=== PATIENT | female | born 1945 | race Caucasian/White ===

== ENCOUNTER 2016-11-17 05:32 | Inpatient (IN) | payer OTHER ==
[~2016-11-17] VITALS: Ht 162.6 cm; Wt 78.5 kg
--- NOTE | ~2016-11-17 | O ---
[facility] [place] [address] OPERATIVE REPORT Name: EAMON FRANKLIN Room #: 409-P [facility] M.R.#: [id number] Admission: 11/17/16 Attend Phys: Vincenzo Valdez MD Discharge: Date of : 41 Report #: [id number] THIS REPORT FOR: //name// CC: Vincenzo Bender MD DATE OF SERVICE: 11/17/2016 PREOPERATIVE DIAGNOSIS: Recurrent incisional hernia, mid abdomen. POSTOPERATIVE DIAGNOSIS: Recurrent incisional hernia mid abdomen, 5 cm defect found. SURGEON: Vincenzo Valdez M.D. PROCEDURE PERFORMED: Laparoscopic repair of recurrent incisional hernia. ANESTHESIA: General anesthesia. ESTIMATED BLOOD LOSS: 10 mL. FINDINGS: The patient did have quite a bit of adhesion from his prior surgery. The previous mesh is identified mostly on the right side of the midline. Midline fascia defect about 5 cm was identified. PROCEDURE NOTE: The patient under general anesthesia, a Luis catheter was placed. The abdomen was prepped and draped in sterile fashion. IV antibiotics of 1 g of vancomycin was given by Anesthesia. Timeout was performed. Abdomen is prepped and draped. Ioban was used. A small cutdown incision was made in the left abdomen measuring about 2.5 cm. The patient had a previous laparoscopic port site, which is just slightly higher to this incision. The anterior rectus sheath was identified. The rectus sheath was incised. 0 Vicryl suture placed on the fascial edges for retraction, muscle was spread. The posterior sheath was then found and then grasped with hemostat and opened between the hemostat with #15 blade. The abdominal cavity was entered. No adhesions in this area. A 0 Vicryl placed on the posterior sheath for retraction. Origin balloon trocar was placed. An 11 mm scope was placed. A 5 mm trocar was placed in the left upper quadrant, another 5 mm trocar in the left lower quadrant. These were placed under visualization. Adhesions were taken down using Harmonic scissor. The adhesion did have some prominent veins in it from her liver disease. But these were able to be controlled easily with Harmonic scissor. Omental adhesion was freed from the abdominal wall. Fascia defect was then identified. There is some omentum that has stuck to the hernia sac. These were freed. Right along the edge of the fascia defect, there is a ProTack which is from her prior surgery, and a little bit of mesh material. [address] [address] OPERATIVE REPORT Name: EAMON FRANKLIN Room #: 409-P [facility] Yo#: [id number] Admission: 11/17/16 Attend Phys: Vincenzo Valdez MD Discharge: Date of : 41 Report #: [id number] Otherwise, mesh is densely covered by denser fatty omental adhesion, and they are more to the right side of the abdomen. Enough space of the omental adhesions taken down surrounding this defect. A 6 inch circular Ventralight mesh with echo technology was used. This was placed to the cutdown site. This was then opened up in the abdominal cavity. The insufflating tubing was brought out through a small stab incision, right at the center part of the hernia sac. The balloon was inflated. The mesh was then pulled up against the wall. The mesh was seated properly and then tacked with SorbaFix, entirely all the way around. The mesh was able to be tacked into the previous mesh material without difficulty. Approximately 30 tacks were spread along the periphery and then also closer to the fascia defect. The Cerrillos-Erik CV-0 suture was placed in a transfascial manner. A small incision was made along the edge at 12, 3, 6, and 9 o'clock positions. A suture retriever needle was placed through the wall, grabbing one stitch, and then through the same skin incision, through the fascia, grabbing the other end of the suture was tied down. This was performed at 12, 3, 6, and 9 o'clock position for transfascial suture. Mesh was held well. No bleeding was identified. CO2 was evacuated. Trocars were removed. 0 PDS was used to close the cutdown site side. Nyvzli-ib-nzdpf times 2 placed in the posterior sheath. Oghxtj-ax-ytmbs times 2 placed in the anterior sheath. Skin was irrigated. Skin was then closed with 5-0 PDS at the trocar site. The small stab incision was closed with Dermabond. Band-Aids applied. Abdominal binding was put on. The patient was awakened and taken to recovery room. By: [id number] [id number] Vincenzo Valdez MD /nt
--- NOTE | ~2016-11-17 | H ---
[facility] [place] [address] HISTORY AND PHYSICAL Name: EAMON FRANKLIN Room #: 150-4 [facility] M.R.#: [id number] Admission: 11/17/16 Attend Phys: Vincenzo Valdez MD Discharge: Date of : 41 Report #: [id number] THIS REPORT FOR: //name// CC: Vincenzo Bender MD PREOPERATIVE DIAGNOSIS: Symptomatic recurrent incisional hernia. HISTORY OF PRESENT ILLNESS: The patient is a 71-year-old who is having fairly severe abdominal pain at this time. This started about a month ago. The patient has noticed a bulge in her mid abdomen and these bulges are getting bigger. She has had prior surgery in [place] for a hernia repair using mesh. She did have abdominoplasty many years ago. She has also had hysterectomy. She has had cholecystectomy. The patient was noted to have a fairly prominent incisional hernia, center part of the abdomen, feels like there are several defects present. Because of symptomatic nature, she is recommended to have the hernia repaired. The patient does have a history of cirrhosis from fatty liver, but she is pretty functional and her cirrhosis is well compensated. PAST MEDICAL HISTORY: 1. Fatty liver leading to cirrhosis. 2. History of diabetes. 3. High blood pressure. 4. Paroxysmal atrial fibrillation. 5. Obstructive sleep apnea. 6. Autoimmune hepatitis. 7. History of urinary tract infection. 8. History of metabolic encephalopathy in October 2015. MEDICATIONS: Includes metformin 1000 b.i.d., glipizide 10 mg b.i.d., Lasix 20 mg daily, flecainide 50 mg twice a day, Januvia 50 mg daily, aspirin 325 daily, and vitamins. PAST SURGICAL HISTORY: Abdominal hernia repair, hysterectomy, gallbladder surgery, and abdominoplasty. ALLERGIES: She is allergic to PENICILLIN, LISINOPRIL, CONTRAST IODINE. FAMILY HISTORY: Mother at age 55 from cancer. There is heart disease in the family. Brother with diabetes and cancer. 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 She does not smoke, does not drink. REVIEW OF SYSTEMS: She has gotten atrial fibrillation and she has a history of constipation. No shortness of breath, chest pain, or palpitation. There is no [place] [address] [place] [address] HISTORY AND PHYSICAL Name: EAMON FRANKLIN Room #: [facility]-4 [facility]#: [id number] Admission: 11/17/16 Attend Phys: Vincenzo Valdez MD Discharge: Date of : 41 Report #: [id number] ascites. No weight loss. PHYSICAL EXAMINATION: GENERAL: The patient is a well-developed, well-nourished female, in no acute distress. HEENT: Pupils react to light. Sclerae nonicteric. NECK: Soft and supple, no masses, no JVD. LUNGS: Clear to auscultation. CARDIOVASCULAR: Regular rate and rhythm. No murmur or gallop. ABDOMEN: Soft and nondistended. Midline several incisional hernia defects identified. These are not tender. She does have a fair amount of weakness and protrusion in the abdominal wall. This seems to be isolated in the mid periumbilical area. No ascites detected. No mass. No guarding. No dilated veins. EXTREMITIES: No cyanosis, clubbing or edema. IMPRESSION: 1. The patient is a 71-year-old with a history of cirrhosis, which is well compensated. 2. Diabetes. 3. Atrial fibrillation. 4. Hypertension. The patient has quite a bit of pain in her abdomen from her hernia and it is getting larger. I do think that the patient is a good operative candidate. She does have multiple medical problems, but I do not see anything prohibitive. The patient is brought in for laparoscopic repair of recurrent incisional hernia. Use of a mesh was discussed. The patient understands the procedure, risk of bleeding, infection, mesh infection, hernia recurrence. The patient wishes to proceed. By: [id number] Vincenzo Valdez MD /nt
--- NOTE | ~2016-11-17 | EKG ---
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 : 1945 Requested By: Vincenzo Valdez Order Number: [id number] MD: Anirudh Lovett Measurements Intervals [place] Rate: 65 P: 45 WA: 192 QRS: -9 QRSD: 83 T: 25 QT: 430 QTc: 448 Interpretive Statements Sinus rhythm No significant abnormality Baseline wander in lead(s) II,III,aVF,V2 No previous ECG available for comparison Electronically Signed On 11-18-2016 7:48:25 CDT by Anirudh Lovett [email or web address] <ELECTRONICALLY SIGNED> By: Anirudh Lovett MD, [facility] 11/18/16 0748 D: [id number] Anirudh Lovett MD, FACC /EPI
[~2016-11-17 05:32] MED LIST: ASPIRIN325 PO; CELEXA20 MG PO; CENTRUM SILVER1 EAC4 PO; COZAAR 25 MG TA25 M1 PO; CRANBERRY500 M1 PO; FLECAINIDE ACET50 M1 PO; GLIPIZIDE 10 MG10 MG PO; JANUVIA50 MG PO; LACTULOSE10 GM/152 PO; LASIX 20 MG TAB20 MG PO; METFORMIN HCL500 MG PO; OXYCODONE HCL 55 MG PO; OXYCONTIN10 M1 PO; SPIRONOLACTONE50 MG PO; ZOFRAN ODT4 MG PO
[2016-11-17 07:32] LABS: HEMATOCRIT 34.1 % (37.0-47.0); HEMOGLOBIN 11.6 gm/dL (12.0-15.0)
[2016-11-17 07:46] LABS: CALCIUM 9.4 mg/dL (8.5-10.1); CREATININE 0.8 mg/dL (0.6-1.0); POTASSIUM 4.2 mmol/L (3.5-5.1)
[2016-11-17 07:51] LABS: ALBUMIN 3.8 g/dL (3.4-5.0); TOTAL BILIRUBIN 0.7 mg/dL (<0.1-1.0); TOTAL PROTEIN 7.6 g/dL (6.4-8.2)
[2016-11-17 09:00] VITALS: BP 136/83
[2016-11-17 13:56] VITALS: BP 132/65
[2016-11-17 15:52] VITALS: BP 142/72
[2016-11-17 17:51] VITALS: BP 143/76
[2016-11-17 20:32] VITALS: BP 131/62
[2016-11-18 03:05] VITALS: BP 141/65
[2016-11-18 08:51] VITALS: BP 113/55
[2016-11-18 16:00] VITALS: BP 123/67
[2016-11-18 19:47] VITALS: BP 131/64
[2016-11-19] VITALS: BP 116/56
[2016-11-19 04:00] VITALS: BP 137/64
[2016-11-19 08:44] VITALS: BP 121/46
[2016-11-19] MEDS ORDERED: NORCO 5-325 TA1 EACH PO (13:32)
[2016-11-19] MEDS ORDERED: NYSTATIN 1100000 U/M SW&SWALLOW (13:33)
[2016-11-19 14:12] VITALS: BP 121/46
== END 2016-11-19 14:35 | disposition home or self-care (01) | DRG 355 ==
LOC: OR 05:32 → TBA 05:33 → OR 09:26 → 4N 12:37
PROVIDERS: Surgery
PROC: 0WUF4JZ Supplement Abdominal Wall with Synthetic Substitute, Percutaneous Endoscopic Approach (ICD-10-PCS; principal; 2016-11-18)
DX: K43.2 Incisional hernia without obstruction or gangrene (principal); I10 Essential (primary) hypertension; E11.9 Type 2 diabetes mellitus without complications; I48.0 Paroxysmal atrial fibrillation; G47.33 Obstructive sleep apnea (adult) (pediatric); K74.60 Unspecified cirrhosis of liver; K75.4 Autoimmune hepatitis; Z90.49 Acquired absence of other specified parts of digestive tract; Z90.710 Acquired absence of both cervix and uterus; Z88.0 Allergy status to penicillin; Z88.8 Allergy status to other drugs, medicaments and biological substances; Z91.041 Radiographic dye allergy status; Z82.49 Family history of ischemic heart disease and other diseases of the circulatory system; Z80.8 Family history of malignant neoplasm of other organs or systems; Z83.3 Family history of diabetes mellitus
CPT/HCPCS: 10091; 50010; 50101; 50249; 50411; 50455; 50555; 50687; 50886; 50978; 53065; 53307; 53335; 54022; 54118; 56462; 56525; 56526; 56530; 62110; 62900; 70005

== ENCOUNTER 2017-01-22 21:30 | Emergency (ER) | payer OTHER ==
[~2017-01-22] VITALS: Ht 165.1 cm; Wt 78.0 kg
[~2017-01-22 21:30] MED LIST changes: +NORCO 5-325 TA1 EACH PO; +NORFLEX100 MG PO; +NYSTATIN 1100000 U/M SW&SWALLOW; +SENOKOT-S1 TA1 PO
[2017-01-22 22:23] LABS: BASOPHILS 0.9 % (0.0-2.0); HEMATOCRIT 32.7 % (37.0-47.0); HEMOGLOBIN 11.2 gm/dL (12.0-15.0); LYMPHOCYTES 27.5 % (24.0-44.0); MCH 28.7 pg (26.0-34.0); MCHC 34.3 g/dL (28.0-37.0); MCV 83.7 fL (80.0-100.0); MONOCYTES 7.9 % (1.0-8.0); PLATELET COUNT 202 thou/uL (150-400); POLYS 60.7 % (36.0-66.0); RBC 3.91 mil/uL (4.20-5.00); RDW 16.3 % (10.5-14.5); WBC 6.5 thou/uL (4.0-11.0)
[2017-01-22 22:24] LABS: MANUAL DIFF NO
[2017-01-22 22:26] LABS: CALCIUM 8.9 mg/dL (8.5-10.1); CREATININE 0.7 mg/dL (0.6-1.0); POTASSIUM 4.3 mmol/L (3.5-5.1)
== END 2017-01-23 01:01 | disposition home or self-care (01) ==
LOC: ER 21:30
PROVIDERS: Emergency Medicine
DX: S39.012A Strain of muscle, fascia and tendon of lower back, initial encounter (principal); I10 Essential (primary) hypertension; E11.9 Type 2 diabetes mellitus without complications; I48.2 Chronic atrial fibrillation; M19.90 Unspecified osteoarthritis, unspecified site; Z90.49 Acquired absence of other specified parts of digestive tract; Z90.710 Acquired absence of both cervix and uterus; Z88.0 Allergy status to penicillin; Z88.8 Allergy status to other drugs, medicaments and biological substances; Z91.041 Radiographic dye allergy status